=== PATIENT | male | born 1955 | race Caucasian/White ===

== ENCOUNTER 2016-10-17 08:10 | Day surgery (SDC) | payer MEDICAID ==
[2016-10-17] MEDS ORDERED: Levofloxacin 500 mg/100 ml D5W 500 MG/100 ML RTU IV ONE (09:06)
[2016-10-17] MEDS ORDERED: MEPERIDINE 25 MG/ML TUBEX IV PRN (09:15)
[2016-10-17] MEDS ORDERED: LABETALOL 20 MG/4 ML SYRINGE IV PRN (09:15)
[2016-10-17] MEDS ORDERED: ONDANSETRON HCL 4 MG ODT TAB PO PRN (09:15)
[2016-10-17] MEDS ORDERED: PROMETHAZINE 25 MG/ML VIAL IV PRN (09:15)
[2016-10-17] MEDS ORDERED: HYDROmorphone 1 MG INJECTION IV PRN ×2 (09:15)
[2016-10-17] MEDS ORDERED: hydrALAZINE 20 MG/ML VIAL IV PRN (09:15)
[2016-10-17] MEDS ORDERED: FENTANYL 100 MCG/2 ML VIAL IV PRN ×2 (09:15)
[2016-10-17] MEDS ORDERED: ONDANSETRON HCL 4 MG/2 ML VIAL IV PRN ×2 (09:15→14:40)
--- NOTE | 2016-10-17 09:16 | SC.ANESPOS ---
Post-Anesthesia Note LOC: [facility] Calling Post-Anesthesia Assessment: Awake, Returned to Baseline, Hemodynamically Stable , Pain Control Adequate Phase I & II Recovery Complete: Yes Apparent Anesthesia Complication: No : N - Vital Signs Blood Pressure: 147/81 Pulse: 88 Resp Rate: 16 O2 Sat: 98 Temp: 97.1 F
--- NOTE | 2016-10-17 09:37 | HIM.ANES ---
Anesthesia Evaluation & Plan Diagnoses: CALCULUS IN BLADDER (10/17/16) Consented Procedure: CYSTOSCOPY, LASER BLADDER CALCULUS - Focused Review of Systems Cardiac History: Yes: Hx Hypertension, Hx Cardiac Disorders, Hx Abnormal Cholesterol/Hyperlipidemia HEENT: Yes: Hx Hearing Impairment, Hx Dysphagia (AT TIMES ), Hx Vision Problem ( WEARS GLASSES) Respiratory: Yes: Hx Recent Cold/Flu Gastrointestinal: Yes: Hx Gastroesophageal Reflux Disease (Controlled), Hx Endoscopy Neurological/Musculoskeletal: Yes: Hx Head Trauma, Hx Back Pain, Hx Numbness, Tingling, Weakness in Arms & Legs Psychological: No Hx Mental/Emotional Disorders Endocrine: Yes: Hx Insulin Dependent Diabetes Blood/Autoimmune: Yes: Hx Blood Transfusions Smoking Status: Never smoker Other Surgical History: LARGE BOWEL REMOVED, PART OF SMALL BOWEL WITH OSTOMY KIDNEY STONES REMOVED, ESWL - Focused Physical Exam NPO since: 10/16/16 1900 Mallampati: Class III Thyromental Distance: Greater than 3 Neck: Full Range of Motion Dental: Normal - no significant findings Cardiovascular/Chest: Normal Respiratory: Lungs clear Any problems with anesthesia, including nausea and vomiting?: No Any relatives with a history of Malignant Hyperthermia?: No Beta Liz given (if appropriate): N/A Other: Allergies Allergy/AdvReac Type Severity Reaction Status Date / Time Penicillins Allergy Hives* Verified 10/17/16 09:00 Home Medications Medication Instructions Recorded Last Taken Type Albiglutide [Tanzeum] 30 mg SQ . DIRECTED 10/16/16 10/16/16 History Atorvastatin Calcium [Lipitor] 20 mg PO DAILY 10/16/16 10/16/16 History Canagliflozin [Invokana] 100 mg PO DAILY 10/16/16 10/16/16 History Fenofibrate [Tricor] 145 mg PO DAILY 10/16/16 10/16/16 History Insulin Glargine [Lantus Pen] 40 units SQ HS 10/16/16 10/16/16 21:00 History Lisinopril/Hydrochlorothiazide 1 tab PO DAILY 10/16/16 10/16/16 History [Lisinopril-Hctz 20-12.5 mg Tab] Tamsulosin HCl [Flomax] 0.4 mg PO DAILY 10/16/16 10/16/16 History Aspirin 325 mg PO DAILY 10/17/16 1 Month Ago History Linagliptin [Tradjenta] 5 mg PO DAILY 10/17/16 10/16/16 History Height and Weight Patient's height 5 ft 10 in Patient's weight 219 lb Vital Signs Temperature 97.1 F L 10/17/16 09:15 Pulse Rate 88 10/17/16 09:15 Respiratory Rate 16 10/17/16 09:15 Blood Pressure 147/81 10/17/16 09:15 Pulse Oxygen Saturation 98 10/17/16 09:15 - Anesthetic Plan Anesthesia Type: General ASA Class: 3 -: I have examined this patient and reviewed the medical record. The patient has been assessed prior to anesthesia. Risks and benefits of anesthesia and anesthetic technique options have been discussed and all questions answered. The patient accepts the risk and desires me to proceed with the planned anesthetic.
[2016-10-17] MEDS ORDERED: DEXAMETHASONE 4 MG/ML VIAL IV ONE (10:00)
[2016-10-17] MEDS ORDERED: SUCCINYLCHOLINE 20 MG/1 ML INJ 10 ML MDV IV ONE (10:00)
[2016-10-17] MEDS ORDERED: PROPOFOL 200 MG/20 ML VIAL IV ONE (10:00)
[2016-10-17] MEDS ORDERED: ONDANSETRON HCL 4 MG/2 ML VIAL IV ONE (10:00)
[2016-10-17] MEDS ORDERED: MIDAZOLAM 2 MG/2 ML VIAL IV ONE (10:00)
[2016-10-17] MEDS ORDERED: FENTANYL 100 MCG/2 ML VIAL IV ONE (10:00)
[2016-10-17] MEDS ORDERED: LIDOCAINE 100 MG PFS IV ONE (10:00)
--- NOTE | 2016-10-17 14:39 | HIMOPRPT ---
PROCEDURE: DATE OF PROCEDURE: 10/17/16 PREOPERATIVE DIAGNOSIS: Bladder calculi and BPH. POSTOPERATIVE DIAGNOSIS: Bladder calculi and BPH. PROCEDURE PERFORMED: Cystoscopy and laser lithotripsy of bladder calculi. SURGEON: Rafael Harrell MD ANESTHESIA USED: General. INDICATION FOR PROCEDURE: The patient is an 61 WHITE M with a history of BPH and voiding symptoms. He underwent cystoscopy in the office and was found to have 2 large bladder calculi. He is brought in now for laser lithotripsy of bladder calculi. PROCEDURE IN DETAIL: The patient was brought into the operating room and placed on the table in the supine position. After adequate general anesthesia was achieved, he was carefully placed in dorsal lithotomy position. The patient was prepped and draped over the genitalia for the performance of cystoscopy. Initially, the 23-Lithuanian scope was passed under vision into the bladder. No strictures were noted. Prostatic urethra was 3-4 cm in length with median lobe partially obstructing. Inside the bladder ureteral orifices were visible and 2 bladder stones were seen. No other lesions noted. The 1 micron matter fiber was then placed through the cystoscope and then tedious the and sequentially the 1st large stone was obliterated into small fragments. Luis Felipe syringe was used to remove fragments. Attention was then turned to the 2nd stone and similarly it was able to be fragmented and pieces removed. A final inspection revealed some mild mucosal erythema but the bladder was intact and there was no bleeding. There were no significant residual fragments. The bladder was filled and cystoscope was then removed. A 20 Lithuanian Sterling was placed to drain the bladder. The patient tolerated all this well. He was then awakened and taken to the recovery room in good condition.
[2016-10-17] MEDS ORDERED: HYDROCODONE 5 MG/ACETAMIN 325 MG TAB PO PRN (14:40)
[2016-10-17] MEDS: LR 1,000 ML IV SCH (15:37)
[2016-10-17] MEDS ORDERED: Vaccine Screening Complete SCH (17:00)
[2016-10-17 17:36] VITALS: BMI 32.2
[2016-10-18] MEDS: LR 1,000 ML IV SCH (01:58)
[2016-10-18] MEDS ORDERED: Levofloxacin 500 mg/100 ml D5W 500 MG/100 ML RTU IV SCH (09:00)
--- NOTE | 2016-10-18 13:24 | PCM.UROPRO ---
Post Op Day #: 1 Post-op Assessment: Reports: Feels better (- he is voiding without catheter) - Physical Exam Vital Signs: Temperature: 97.8 F (10/18/16 10:00) HR: 91 (10/18/16 10:00) RR: 18 (10/18/16 10:00) BP: 125/64 (10/18/16 10:00) Pulse Ox: 96 (10/18/16 10:00) General: Alert, Oriented x3, Cooperative Gastrointestinal: Soft, Bowel Sounds. negative: Distended, Tender Genitourinary: Penis, Scrotum Musculoskeletal/Extremities: negative: Tenderness, Edema Skin: Warm,Dry and Intact, No rashes Neurological: Normal speech Plan: He is doing well we will discharge him home Case Care Discussed with: Patient
--- NOTE | 2016-10-18 13:27 | PCM.DCS92 ---
- Final/Secondary Discharge Diagnosis (1) Bladder calculi Chronic N21.0 - CALCULUS IN BLADDER Discharge Disposition: Home Discharge Condition: Improved Cognitive Discharge Status: Unimpaired Fuctional Discharge Status: Independent P.o. Levaquin and Oxy IR 5 mg Diet at Discharge: 1800 Calorie Activity: No Heavy Lifting Call Office For: Fever over 101 F Discontinue use of:: Alcohol, All Illegal Substances, All Types of Tobacco - DC Summary Notes Hospital Course Note:: Discharge summary on patient named MARJORIE FINCH JR admitted to [facility] on 10/17/16 by Rafael Harrell MD. Date of discharge is []. This is a patient was admitted to the hospital for laser lithotripsy of bladder calculi. He underwent the procedure on October 17. He was admitted for observation as he was having hematuria. Today he is doing better with the Sterling catheter has been removed and he has been able to void on his own. We will keep him on a course of p.o. Levaquin and Oxy IR 5 mg p.r.n. for pain. He may resume his home medications. Will see him in the office for follow-up
[2016-10-18 14:30] VITALS: BP 135/78; PULSE 88; TEMP 98.4
== END 2016-10-18 15:00 | disposition home or self-care (01) ==
LOC: SDC 08:10 → MPS3 15:15
PROVIDERS: ADMIT Urology; ATTEND Urology
PROC: 0TCB8ZZ Extirpation of Matter from Bladder, Via Natural or Artificial Opening Endoscopic (ICD-10-PCS; principal; 2016-10-17 12:00)
DX: N21.0 Calculus in bladder (principal); N40.1 Benign prostatic hyperplasia with lower urinary tract symptoms; R31.9 Hematuria, unspecified; E11.9 Type 2 diabetes mellitus without complications; Z79.4 Long term (current) use of insulin; E78.5 Hyperlipidemia, unspecified; I10 Essential (primary) hypertension; Z79.84 Long term (current) use of oral hypoglycemic drugs; Z79.899 Other long term (current) drug therapy
CPT/HCPCS: 52318; 82962; G0378; J0330; J1100; J1956; J2001; J2250; J2405; J3010; J3490